=== PATIENT | female | born 1955 | race Caucasian/White ===

== ENCOUNTER 2019-01-09 13:49 | Outpatient (CLI) | payer MEDICARE ==
[2019-01-09 14:22] LABS: Bilirubin Negative (Negative); Blood, Urine Negative (Negative); Glucose, Urine (Dipstick) Negative (Negative); Leukocyte Negative (Negative); Nitrite Positive (Negative); Protein, Urine (Dipstick) Negative (Neg-Trace); Urobilinogen 0.2 mg/dL (0.2-1.0); pH, Urine 5.5 (5.0-9.0)
[2019-01-09 15:03] LABS: Clarity Hazy (Clear)
[2019-01-09 15:05] LABS: Bacteria/HPF 3+ HPF (None Seen); RBC/HPF None Seen HPF (0-3); Squamous Epithelial 0-3 HPF (0-3); WBC/HPF 0-3 HPF (0-3)
== END 2019-01-09 13:50 | disposition home or self-care (01) ==
LOC: MADLAB 13:49
PROVIDERS: ATTEND Internal Medicine
DX: M62.81 Muscle weakness (generalized) (principal); Z96.652 Presence of left artificial knee joint
CPT/HCPCS: 81001; 87077; 87086; 87186

== ENCOUNTER 2019-11-24 10:36 | Emergency (ER) | payer MEDICARE ==
[2019-11-24] MEDS ORDERED: Ondansetron ODT 4 MG TAB ONE (11:04)
[2019-11-24] MEDS ORDERED: Dexamethasone 10 MG/ML VIAL ONE (11:04)
[2019-11-24] MEDS ORDERED: Famotidine 20 MG TAB ONE (11:04)
== END 2019-11-24 11:40 | disposition home or self-care (01) ==
LOC: MADERS 10:36
DX: L27.0 Generalized skin eruption due to drugs and medicaments taken internally (principal); T36.8X5A Adverse effect of other systemic antibiotics, initial encounter; E03.9 Hypothyroidism, unspecified; E78.5 Hyperlipidemia, unspecified; E78.00 Pure hypercholesterolemia, unspecified; Z79.899 Other long term (current) drug therapy
CPT/HCPCS: 96372; 99284; J1100; Q0162